=== PATIENT | male | born 1965 | race African-American/Black ===

== ENCOUNTER 2016-10-23 16:09 | Emergency (ER) | payer OTHER ==
[2016-10-23 17:05] LABS: Hematocrit 49 % (42-52); Hemoglobin 16.2 g/dl (14.0-18.0); Mean Corpuscular HGB Conc 33 g/dl (31-36); Mean Corpuscular Hemoglobin 27 pg (27-31); Mean Corpuscular Volume 81 fL (80-94); Mean Platelet Volume 9 um3 (7.4-10.4); Red Blood Count 5.97 10^6/ul (4.0-5.4); Red Cell Distribution Width 13 % (10.5-15); White Blood Count 10.6 10^3/ul (3.5-10.8)
[2016-10-23 17:20] LABS: Albumin 4.7 g/dL (3.2-5.2); BUN/Creatinine Ratio 13.1 (8-20); Calcium 9.6 mg/dL (8.6-10.3); EGFR African American 70.5 (>60); EGFR Non-African American 54.8 (>60); Potassium 4.3 mmol/L (3.5-5.0); Total Bilirubin 0.6 mg/dL (0.2-1.0); Total Protein 7.7 g/dL (6.4-8.9)
--- NOTE | 2016-10-23 18:29 | RAD ---
INDICATION: LEFT upper chest pain for a few days. Radiation to the back. COMPARISON: February 18, 2010 TECHNIQUE: Dual energy PA and routine lateral views of the chest were obtained. REPORT: Elevated lung volumes with flattening of the hemidiaphragms. Negative for alveolar consolidation, focal pulmonary lesion, pleural effusion, pneumothorax. The heart, pulmonary vasculature, and mediastinal contours are unremarkable. C5-C7 anterior cervical fusion hardware. IMPRESSION: Stigmata of probable chronic obstructive pulmonary disease. No acute cardiopulmonary process evident.
--- NOTE | 2016-10-23 18:29 | ED ---
Farrah Campos SooYoung, scribed for Dirk Mayfield MD on 10/23/16 at 1635 . HPI Chest Pain - HPI Summary HPI Summary: A 51 y/o M presents to ED with c/o mid-sternal CP onset five days ago. Radiating to back and down LUE. Pain described as sharp, stabbing. Atraumatic. Pain is worse when he sits, relaxes. Wakes him up at night. Pt is a smoker. - History of Current Complaint Chief Complaint: EDChestPainROMI Time Seen by Provider: 10/23/16 16:21 Hx Obtained From: Patient Onset/Duration: Started Days Ago, Atraumatic, Still Present Initial Severity: Moderate Current Severity: Moderate Chest Pain Location: Mid Sternal Chest Pain Radiates: Yes Chest Pain Radiates To:: Back, Arm - L arm Character: Sharp/Stabbing Aggravating Factor(s): Rest - Allergy/Home Medications Allergies/Adverse Reactions: Allergies Allergy/AdvReac Type Severity Reaction Status Date / Time Naproxen Allergy swelling; Verified 10/23/16 16:33 GI bleed Penicillins Allergy HIVES AND Verified 10/23/16 16:33 SWELLING PMH/Surg Hx/FS Hx/Imm Hx Previously Healthy: No Cardiovascular History: Reports: Hx Hypertension Denies: Hx Pacemaker/ICD Respiratory History: Reports: Hx Chronic Obstructive Pulmonary Disease (COPD) GI History: Reports: Hx Gastrointestinal Bleed, Hx Ulcer, Other GI Disorders - GASTRIC ULCER Musculoskeletal History: Reports: Hx Back Problems, Other Musculoskeletal History - herniated discs c-spine caused cord compression Sensory History: Denies: Hx Hearing Aid Neurological History: Reports: Hx Headaches Psychiatric History: Denies: Hx Panic Disorder - Surgical History Surgery Procedure, Year, and Place: cervical spine fusion 2009, Dr. Green Infectious Disease History: No Infectious Disease History: Denies: History Other Infectious Disease, Traveled Outside the [place] in Last 30 Days - Family History Known Family History: Positive: Cardiac Disease - mother, Other - father in 60s, mother still alive - Social History Occupation: Unemployed Lives: With Family Alcohol Use: Daily Alcohol Amount: "couple per day" Hx Substance Use: No Substance Use Type: Reports: None Hx Tobacco Use: Yes Smoking Status (MU): Former Smoker Type: Cigarettes Amount Used/How Often: down to 5 cigarettes per day Length of Time of Smoking/Using Tobacco: started smoking at age 17 Have You Smoked in the Last Year: Yes Review of Systems Negative: Fever Positive: Chest Pain All Other Systems Reviewed And Are Negative: Yes Physical Exam Triage Information Reviewed: Yes Vital Signs On Initial Exam: Initial Vitals Temp Pulse Resp BP Pulse Ox 98.4 F 56 16 168/87 100 10/23/16 16:28 10/23/16 16:28 10/23/16 16:28 10/23/16 16:28 10/23/16 16:28 Vital Signs Reviewed: Yes Appearance: Positive: Well-Appearing, No Pain Distress Skin: Positive: Warm, Skin Color Reflects Adequate Perfusion, Dry Head/Face: Positive: Normal Head/Face Inspection Eyes: Positive: Normal ENT: Positive: Normal ENT inspection Neck: Positive: Supple, Nontender Respiratory/Lung Sounds: Positive: Clear to Auscultation, Breath Sounds Present Cardiovascular: Positive: RRR, Other - POS: Tender at L rhomboid area Abdomen Description: Positive: Nontender, Soft Bowel Sounds: Positive: Present Musculoskeletal: Positive: Other - POS: Tender at L rhomboid area Neurological: Positive: Normal Psychiatric: Positive: Normal, Affect/Mood Appropriate Diagnostics - Vital Signs Vital Signs Temp Pulse Resp BP Pulse Ox 10/23/16 16:28 98.4 F 56 16 168/87 100 - Laboratory Lab Results: Lab Results 10/23/16 10/23/16 10/23/16 Range/Units 16:58 16:58 16:58 WBC 10.6 (3.5-10.8) 10^3/ul RBC 5.97 H (4.0-5.4) 10^6/ul Hgb 16.2 (14.0-18.0) g/dl Hct 49 (42-52) % MCV 81 (80-94) fL MCH 27 (27-31) pg MCHC 33 (31-36) g/dl RDW 13 (10.5-15) % Plt Count 278 (150-450) 10^3/ul MPV 9 (7.4-10.4) um3 Neut % (Auto) 67.0 (38-83) % Lymph % (Auto) 20.0 L (25-47) % Riley % (Auto) 10.5 H (1-9) % Eos % (Auto) 2.3 (0-6) % Baso % (Auto) 0.2 (0-2) % Absolute Neuts (auto) 7.1 (1.5-7.7) 10^3/ul Absolute Lymphs (auto) 2.1 (1.0-4.8) 10^3/ul Absolute Monos (auto) 1.1 H (0-0.8) 10^3/ul Absolute Eos (auto) 0.2 (0-0.6) 10^3/ul Absolute Basos (auto) 0 (0-0.2) 10^3/ul Absolute Nucleated RBC 0.01 10^3/ul Nucleated RBC % 0.1 D-Dimer, Quantitative < 200 (Less Than 230) ng/mL Sodium 138 (133-145) mmol/L Potassium 4.3 (3.5-5.0) mmol/L Chloride 104 (101-111) mmol/L Carbon Dioxide 27 (22-32) mmol/L Anion Gap 7 (2-11) mmol/L BUN 18 (6-24) mg/dL Creatinine 1.37 H (0.67-1.17) mg/dL Est GFR ( Amer) 70.5 (>60) Est GFR (Non-Af Amer) 54.8 (>60) BUN/Creatinine Ratio 13.1 (8-20) Glucose 117 H (70-100) mg/dL Lactic Acid (0.5-2.0) mmol/L Calcium 9.6 (8.6-10.3) mg/dL Total Bilirubin 0.60 (0.2-1.0) mg/dL AST 20 (13-39) U/L ALT 20 (7-52) U/L Alkaline Phosphatase 59 (34-104) U/L Troponin I 0.00 (<0.04) ng/mL Total Protein 7.7 (6.4-8.9) g/dL Albumin 4.7 (3.2-5.2) g/dL Globulin 3.0 (2-4) g/dL Albumin/Globulin Ratio 1.6 (1-3) 10/23/16 Range/Units 16:58 WBC (3.5-10.8) 10^3/ul RBC (4.0-5.4) 10^6/ul Hgb (14.0-18.0) g/dl Hct (42-52) % MCV (80-94) fL MCH (27-31) pg MCHC (31-36) g/dl RDW (10.5-15) % Plt Count (150-450) 10^3/ul MPV (7.4-10.4) um3 Neut % (Auto) (38-83) % Lymph % (Auto) (25-47) % Riley % (Auto) (1-9) % Eos % (Auto) (0-6) % Baso % (Auto) (0-2) % Absolute Neuts (auto) (1.5-7.7) 10^3/ul Absolute Lymphs (auto) (1.0-4.8) 10^3/ul Absolute Monos (auto) (0-0.8) 10^3/ul Absolute Eos (auto) (0-0.6) 10^3/ul Absolute Basos (auto) (0-0.2) 10^3/ul Absolute Nucleated RBC 10^3/ul Nucleated RBC % D-Dimer, Quantitative (Less Than 230) ng/mL Sodium (133-145) mmol/L Potassium (3.5-5.0) mmol/L Chloride (101-111) mmol/L Carbon Dioxide (22-32) mmol/L Anion Gap (2-11) mmol/L BUN (6-24) mg/dL Creatinine (0.67-1.17) mg/dL Est GFR ( Amer) (>60) Est GFR (Non-Af Amer) (>60) BUN/Creatinine Ratio (8-20) Glucose (70-100) mg/dL Lactic Acid 1.3 (0.5-2.0) mmol/L Calcium (8.6-10.3) mg/dL Total Bilirubin (0.2-1.0) mg/dL AST (13-39) U/L ALT (7-52) U/L Alkaline Phosphatase (34-104) U/L Troponin I (<0.04) ng/mL Total Protein (6.4-8.9) g/dL Albumin (3.2-5.2) g/dL Globulin (2-4) g/dL Albumin/Globulin Ratio (1-3) Result Diagrams: 10/23/16 16:58 10/23/16 16:58 Lab Statement: Any lab studies that have been ordered have been reviewed, and results considered in the medical decision making process. - Radiology CXR Xray Interpretation: No Acute Changes Radiology Interpretation Completed By: ED Physician - EKG 1620 EKG Interpretation: Sinus with early repolarization Re-Evaluation - Re-Evaluation 1 Re-Evaluation Time: 18:16 Comment: Discussing results with pt. Pt complains of L hand weakness onset 5 days ago. On exam it seems grossly strong, but he complains it was grossly uncoordinated. Chest Pain Course/Dx - Course Course Of Treatment: Mr. Mcdermott presented C/O chest pain that sounded radicular. While I was talking to him about that, he revealed that he had had a spinal fusion in his neck several years ago and has chronic pain but nebver down his arm and since Monday he has felt uncoordinated with his left hand. His N/V/M is grossly intact in the hand. I have ordered an MRI. - Diagnoses Provider Diagnoses: Cervical radiculopathy - Provider Notifications Discussed Care Of Patient With: Dr. Lawson Time Discussed With Above Provider: 19:00 - Change of shift Discharge - Discharge Plan Condition: Stable Disposition: HOME Discharge Disposition Comment: SO to Dr. Nagel, awaiting MRI results Referrals: Suki Yancey MD [Primary Care Provider] - The documentation as recorded by the Farrah vera SooYoung accurately reflects the service I personally performed and the decisions made by me, Dirk Mayfield MD.
[2016-10-23] MEDS ORDERED: oxyCODONE/Acetamin 5/325 MG* TAB PO ONE (20:32)
[2016-10-23 20:57] VITALS: BP 184/86
== END 2016-10-23 20:57 | disposition home or self-care (01) ==
LOC: ED 16:09
DX: M54.12 Radiculopathy, cervical region (principal); R07.9 Chest pain, unspecified; Z87.891 Personal history of nicotine dependence
CPT/HCPCS: 36415; 71020; 80053; 83605; 84484; 85025; 85379; 93005; 99283; A9270-GY